=== PATIENT | female | born 1990 | race Caucasian/White ===

== ENCOUNTER 2019-11-27 09:15 | Inpatient (IN) | payer OTHER ==
[~2019-11-27] VITALS: Ht 165.1 cm; Wt 82.0 kg
[~2019-11-27 09:15] MED LIST: IBUPROFEN600 MG PO; NORCO 5-325 TA1 EACH PO; PROTONIX40 MG PO; TYLENOL325 MG PO
--- NOTE | 2019-11-28 07:49 | PR ---
[facility] [address] [place], [place] [address] Signed PP Progress Notes Datetime Report Generated by CPHelga: 11/28/2019 07:49 SUBJECTIVE: [id number] Pain: Within normal limits Pain Comments: She is tolerating ambulation now. Vital Signs: [id number] Vital Signs: Reviewed; Within Normal Limits EXAM: [id number] Cardiovascular: Not Done Respiratory: Not Done Abdomen/Uterus: Abnormal Lochia: Normal Vulva/Perineum: Not Done Breasts: Not Done CVA Tenderness: Not Done Extremities: Normal Incision: Not Applicable Progress: Abnormal Exam Comments: Fundus firm, NT @ U-1. H/H 6.7/20.5, WBC 12.7, plat 200k IMPRESSION/PLAN/PROCEDURES: [id number] Impression: Normal progression; difficulties Other Impression: significant anemia Other Plans: transfuse 1 unit today Procedures: Transfusion Progress Notes: Doing well but significant anemia and would benefit from a transfusion of a unit of blood. Discussed with pt and she agrees. Signing Physician: Carol Green MD Copies: ~ *Electronically Signed* 11/28/19 0749 CAROL GREEN MD PATIENT NAME: TRINO BUSTOS PROGRESS NOTE DATE OF : 89 PHYSICIAN: CAROL GREEN MD RPT #: [id number] REPORT IS CONFIDENTIAL AND NOT TO BE RELEASED WITHOUT AUTHORIZATION
--- NOTE | 2019-11-29 10:16 | PR ---
[facility] [address] [facility] [place], [place] [address] Signed PP Progress Notes Datetime Report Generated by ILYA: 11/29/2019 10:15 SUBJECTIVE: [id number] Pain: Within normal limits Pain Comments: She is tolerating ambulation now. Vital Signs: [id number] Vital Signs: Reviewed; Within Normal Limits EXAM: [id number] Cardiovascular: Not Done Respiratory: Not Done Abdomen/Uterus: Abnormal Lochia: Normal Vulva/Perineum: Not Done Breasts: Not Done CVA Tenderness: Not Done Extremities: Normal Incision: Not Applicable Progress: Abnormal Exam Comments: Fundus firm, NT @ U-1. H/H 7.8/23.5, WBC 14.8, plat 227k IMPRESSION/PLAN/PROCEDURES: [id number] Impression: Normal progression Other Impression: significant anemia Plan: Discharge Other Plans: transfuse 1 unit today Procedures: Transfusion Progress Notes: Doing well. She is feeling better since her transfusion. Signing Physician: Carol Green MD Copies: ~ *Electronically Signed* 11/29/19 1015 CAROL GREEN MD PATIENT NAME: JULITRINO RAWLS PROGRESS NOTE DATE OF : 89 PHYSICIAN: CAROL GREEN MD RPT #: [id number] REPORT IS CONFIDENTIAL AND NOT TO BE RELEASED WITHOUT AUTHORIZATION
== END 2019-11-29 13:40 | disposition home or self-care (01) | DRG 768 ==
LOC: FBC 09:15
PROVIDERS: ADMIT Obstetrics & Gynecology
PROC: 10E0XZZ Delivery of Products of Conception, External Approach (ICD-10-PCS; principal; 2019-11-27)
PROC: 0DQR0ZZ Repair Anal Sphincter, Open Approach (ICD-10-PCS; 2019-11-27)
PROC: 10907ZC Drainage of Amniotic Fluid, Therapeutic from Products of Conception, Via Natural or Artificial Opening (ICD-10-PCS; 2019-11-27)
PROC: 00HU33Z Insertion of Infusion Device into Spinal Canal, Percutaneous Approach (ICD-10-PCS; 2019-11-27)
PROC: 3E0R3BZ Introduction of Anesthetic Agent into Spinal Canal, Percutaneous Approach (ICD-10-PCS; 2019-11-27)
PROC: 30233N1 Transfusion of Nonautologous Red Blood Cells into Peripheral Vein, Percutaneous Approach (ICD-10-PCS; 2019-11-28)
DX: O77.0 Labor and delivery complicated by meconium in amniotic fluid (principal); Z37.0 Single live birth; O99.324 Drug use complicating childbirth; O70.20 Third degree perineal laceration during delivery, unspecified; Z3A.38 38 weeks gestation of pregnancy; O66.0 Obstructed labor due to shoulder dystocia; F12.10 Cannabis abuse, uncomplicated; O99.52 Diseases of the respiratory system complicating childbirth; J30.2 Other seasonal allergic rhinitis; O90.81 Anemia of the puerperium; D64.9 Anemia, unspecified; Z87.891 Personal history of nicotine dependence; Z79.899 Other long term (current) drug therapy
CPT/HCPCS: 01960; 36415; 82565; 82570; 84156; 84450; 84520; 84550; 85025; 85027; 86850; 86900; 86901; 86920; A9270; J2590; J2795; J7121

== ENCOUNTER 2022-08-29 12:46 | Emergency (ER) | payer OTHER ==
[~2022-08-29] VITALS: Ht 165.1 cm; Wt 68.5 kg
== END 2022-08-29 14:18 | disposition home or self-care (01) ==
LOC: ED 12:46
DX: R19.7 Diarrhea, unspecified (principal); Z87.891 Personal history of nicotine dependence
CPT/HCPCS: 99283